=== PATIENT | female | born 1950 | race Caucasian/White ===

== ENCOUNTER 2019-08-13 09:03 | Outpatient (CLI) | payer MEDICARE, OTHER | END 2019-08-13 23:59 | disposition home or self-care (01) | LOC: CFH 09:03 → EDSEX 09:03 → CFH 23:59 | PROVIDERS: ATTEND Family Medicine | DX: Z12.31 Encounter for screening mammogram for malignant neoplasm of breast (principal) | CPT/HCPCS: 77067 ==

== ENCOUNTER 2020-09-16 09:55 | Outpatient (CLI) | payer MEDICARE | END 2020-09-16 23:59 | disposition home or self-care (01) | LOC: CFH 09:55 | PROVIDERS: ATTEND Family Medicine | DX: Z12.31 Encounter for screening mammogram for malignant neoplasm of breast (principal); Z13.820 Encounter for screening for osteoporosis; M81.0 Age-related osteoporosis without current pathological fracture; N95.8 Other specified menopausal and perimenopausal disorders | CPT/HCPCS: 77063; 77067; 77080 ==